=== PATIENT | male | born 1970 | race Caucasian/White ===

== ENCOUNTER → 2016-12-27 | Outpatient (CLI) | payer OTHER ==
[~2016-12-27] MED LIST: ASPI325T45 PO; ATV/1 PO; BUPRTAB51 PO; DSY/150 PO; IMIQ0.00 TOP; METO25TA56 PO; MULT-351 PO; PANT40TA PO; PRAM1TAB47 PO; QUET1TAB34 PO; RANI300T2 PO; SUMA100T16 PO; TRAM-10 PO; [UNRECOGNIZED DRUG - CODE] PO
--- NOTE | 2016-12-27 12:15 | DIAGNOSTIC IMAGING REPORT ---
GI SERIES W/AIR ROUTINE CLINICAL HISTORY: R10.13 Epigastric [id number] COMPARISON STUDY: None. FLUOROSCOPY TIME: 1.7 minutes. 21 images. FINDINGS: The patient swallowed barium without difficulty. The esophagus is normal in course, caliber, motility. No hiatus hernia. No gastroesophageal reflux. No gastric ulcerations. The duodenal bulb and duodenal C sweep are within normal limits. IMPRESSION: Normal upper GI series. Electronically signed by: Robbin Simmons M.D. 12/27/2016 12:14 PM Dictated Date/Time: 12/27/2016 12:13 PM
--- NOTE | 2016-12-27 12:18 | DIAGNOSTIC IMAGING REPORT ---
TWO VIEW CHEST CLINICAL HISTORY: Dyspnea. Atypical chest pain. Cough. FINDINGS: PA and lateral chest radiographs are obtained. No prior studies are available for comparison at the time of dictation. The cardiomediastinal silhouette is unremarkable. The lungs and pleural spaces are clear. There is no pneumothorax. The bony thorax appears intact. IMPRESSION: No active disease in the chest. Electronically signed by: Aftab Costa M.D. 12/27/2016 12:17 PM Dictated Date/Time: 12/27/2016 12:17 PM
[2016-12-27 13:08] LABS: BASO % 0.7 %; BASO ABS # 0.05 K/uL (0-0.2); COMPLETE YES; EOS % 3.6 %; HEMATOCRIT 43.7 % (42-52); IG% 0.1 %; LYMPH ABS # 2.34 K/uL (1.2-3.4); MEAN CELL VOLUME 88.5 fL (80-100); MEAN CORPUSCULAR HEMOGLOBIN 30.8 pg (25-34); MEAN CORPUSCULAR HGB CONC 34.8 g/dl (32-36); MONO % 7.7 %; NEUT % 53.9 %; PLATELET COUNT 319 K/uL (130-400); RED BLOOD COUNT 4.94 M/uL (4.7-6.1); WHITE BLOOD COUNT 6.88 K/uL (4.8-10.8)
[2016-12-27 13:45] LABS: ALT/SGPT 80 U/L (12-78); AMYLASE 36 U/L (25-115); AST/SGOT 34 U/L (15-37); BLOOD UREA NITROGEN 11 mg/dl (7-18); BUN/CREATININE RATIO 8.8 (10-20); CALCIUM 9.5 mg/dl (8.5-10.1); CARBON DIOXIDE 26 mmol/L (21-32); CHLORIDE 104 mmol/L (98-107); CHOLESTEROL 261 mg/dl (0-200); GLUCOSE 104 mg/dl (70-99); POTASSIUM 3.9 mmol/L (3.5-5.1); SODIUM 139 mmol/L (136-145)
[2016-12-27 13:48] LABS: ALKALINE PHOSPHATASE 60 U/L (45-117); CHOLESTEROL/HDL RATIO 6.5; HDL CHOLESTEROL 40 mg/dl; TRIGLYCERIDES 495 mg/dl (0-150)
--- NOTE | 2016-12-27 14:44 | DIAGNOSTIC IMAGING REPORT ---
ABDOMINAL ULTRASOUND, RIGHT UPPER QUADRANT HISTORY: Pain. Nausea. R10.13 Epigastric paint [id number]. COMPARISON: None. FINDINGS: Pancreas: The pancreas demonstrates a normal echotexture. Liver: Mild fatty infiltration Gallbladder: No gallbladder wall thickening. No gallstones. CBD: 6 mm Right kidney: No hydronephrosis. IMPRESSION: Mild fatty infiltration of liver. Otherwise negative study Electronically signed by: Mickey Miguel M.D. 12/27/2016 2:43 PM Dictated Date/Time: 12/27/2016 2:41 PM
[2017-01-01 22:35] LABS: IGA SERUM 133 mg/dL (81-463); TIS TRANS IGA 1 U/mL (<4)
== END | disposition home or self-care (01) ==
LOC: C.ULTR 10:57
PROVIDERS: ATTEND Family Medicine
DX: R06.00 Dyspnea, unspecified (principal); R10.13 Epigastric pain

== ENCOUNTER 2017-01-30 21:25 | Emergency (ER) | payer OTHER ==
[~2017-01-30] VITALS: Ht 182.9 cm; Wt 103.1 kg
[2017-01-30 21:31] VITALS: TEMP 36.7; Ht 182.9 cm; Wt 103.1 kg
[2017-01-30] MEDS ORDERED: QUET1TAB34 PO (22:17)
[2017-01-30] MEDS ORDERED: ASPI325T45 PO (22:17)
[2017-01-30] MEDS ORDERED: PRAM1TAB47 PO (22:17)
[2017-01-30] MEDS ORDERED: IMIQ5CRE4 TOP (22:17)
[2017-01-30] MEDS ORDERED: MULT-351 PO (22:17)
[2017-01-30] MEDS ORDERED: TRAM-10 PO (22:17)
[2017-01-30] MEDS ORDERED: SUMA100T16 PO (22:17)
[2017-01-30] MEDS ORDERED: RANI300T2 PO (22:17)
[2017-01-30] MEDS ORDERED: DSY/150 PO (22:17)
[2017-01-30] MEDS ORDERED: PANT40TA PO (22:17)
[2017-01-30] MEDS ORDERED: [UNRECOGNIZED DRUG - CODE] PO (22:17)
[2017-01-30] MEDS ORDERED: BUPRTAB51 PO (22:17)
[2017-01-30] MEDS ORDERED: ATV/1 PO (22:17)
[2017-01-30] MEDS ORDERED: METO25TA56 PO (22:17)
[2017-01-30 22:22] LABS: BASO ABS # 0.08 K/uL (0-0.2); COMPLETE YES; EOS % 4.9 %; HEMATOCRIT 40.3 % (42-52); LYMPH % 47.2 %; LYMPH ABS # 3.65 K/uL (1.2-3.4); MEAN CELL VOLUME 87.8 fL (80-100); MEAN CORPUSCULAR HEMOGLOBIN 30.7 pg (25-34); MONO % 7.8 %; NEUT % 39.1 %; PLATELET COUNT 320 K/uL (130-400); RED BLOOD COUNT 4.59 M/uL (4.7-6.1); WHITE BLOOD COUNT 7.74 K/uL (4.8-10.8)
[2017-01-30 22:30] LABS: CREATININE 1.1 mg/dl (0.60-1.40); MAGNESIUM 2.1 mg/dl (1.8-2.4); POTASSIUM 4.1 mmol/L (3.5-5.1)
[2017-01-30 22:33] LABS: ALB/GLOB RATIO 1.3 (0.9-2)
[2017-01-30 22:48] LABS: CALCIUM 9.3 mg/dl (8.5-10.1); INR 0.9 (0.9-1.1)
--- NOTE | 2017-01-30 22:52 | EMERGENCY ROOM VISIT NOTE ---
ED Visit Note First contact with patient: 21:51 I have seen and examined this patient with Duke Rico and generally agree with the treatment plan as discussed. Current/Historical Medications Scheduled Aspirin (Aspirin), 325 MG PO DAILY Bupropion (Wellbutrin-Xl), 300 MG PO QAM Imiquimod (Imiquimod), 1 APPLN TOP 3XWK Metoprolol Tartrate (Lopressor) (Lopressor), 25 MG PO BID Multiple Vitamin (Multi Vitamin Mens), 1 TAB PO DAILY Pantoprazole (Protonix), 40 MG PO BID Perphenazine (Perphenazine), 12 MG PO HS Pramipexole Dihydrochloride (Mirapex), 0.5 MG PO UD Quetiapine Fumarate (Seroquel), 100 MG PO HS Ranitidine (Zantac), 300 MG PO HS Sumatriptan Succinate (Imitrex), 100 MG PO PRN Trazodone HCl (Trazodone HCl), 300 MG PO HS Scheduled PRN Lorazepam (Ativan), 1 MG PO BID PRN for PRN Tramadol (Ultram), 50 MG PO TID PRN for Pain Allergies Coded Allergies: Thimerosal (Unverified Allergy, Unknown, EYES SWELLING, 01/30/17) Vital Signs Date Time Temp Pulse Resp B/P Pulse Ox O2 Delivery O2 Flow Rate FiO2 01/30/17 21:31 36.7 72 20 127/83 93 Room Air Laboratory Results 01/30/17 21:45 Red Blood Count 4.59, Mean Corpuscular Volume 87.8, Mean Corpuscular Hemoglobin 30.7, Mean Corpuscular Hemoglobin Concent 35.0, Mean Platelet Volume 9.0, Neutrophils (%) (Auto) 39.1, Lymphocytes (%) (Auto) 47.2, Monocytes (%) (Auto) 7.8, Eosinophils (%) (Auto) 4.9, Basophils (%) (Auto) 1.0, Neutrophils # (Auto) 3.03, Lymphocytes # (Auto) 3.65, Monocytes # (Auto) 0.60, Eosinophils # (Auto) 0.38, Basophils # (Auto) 0.08 01/30/17 21:45 Test 01/30/17 21:45 White Blood Count 7.74 K/uL (4.8-10.8) Red Blood Count 4.59 M/uL (4.7-6.1) Hemoglobin 14.1 g/dL (14.0-18.0) Hematocrit 40.3 % (42-52) Mean Corpuscular Volume 87.8 fL (80-100) Mean Corpuscular Hemoglobin 30.7 pg (25-34) Mean Corpuscular Hemoglobin Concent 35.0 g/dl (32-36) Platelet Count 320 K/uL (130-400) Mean Platelet Volume 9.0 fL (7.4-10.4) Neutrophils (%) (Auto) 39.1 % Lymphocytes (%) (Auto) 47.2 % Monocytes (%) (Auto) 7.8 % Eosinophils (%) (Auto) 4.9 % Basophils (%) (Auto) 1.0 % Neutrophils # (Auto) 3.03 K/uL (1.4-6.5) Lymphocytes # (Auto) 3.65 K/uL (1.2-3.4) Monocytes # (Auto) 0.60 K/uL (0.11-0.59) Eosinophils # (Auto) 0.38 K/uL (0-0.5) Basophils # (Auto) 0.08 K/uL (0-0.2) RDW Standard Deviation 40.7 fL (36.4-46.3) RDW Coefficient of Variation 12.7 % (11.5-14.5) Immature Granulocyte % (Auto) 0.0 % Immature Granulocyte # (Auto) 0.00 K/uL (0.00-0.02) Prothrombin Time 10.0 SECONDS (9.0-12.0) Prothromb Time International Ratio 0.9 (0.9-1.1) Activated Partial Thromboplast Time 25.0 SECONDS (21.0-31.0) Partial Thromboplastin Ratio 1.0 Anion Gap 8.0 mmol/L (3-11) Est Creatinine Clear Calc Drug Dose 105.3 ml/min Estimated GFR () 93.5 Estimated GFR (Non- 80.6 BUN/Creatinine Ratio 10.0 (10-20) Calcium Level 9.3 mg/dl (8.5-10.1) Magnesium Level 2.1 mg/dl (1.8-2.4) Total Bilirubin 0.2 mg/dl (0.2-1) Aspartate Amino Transf (AST/SGOT) 57 U/L (15-37) Alanine Aminotransferase (ALT/SGPT) 96 U/L (12-78) Alkaline Phosphatase 68 U/L (45-117) Total Protein 6.8 gm/dl (6.4-8.2) Albumin 3.8 gm/dl (3.4-5.0) Globulin 3.0 gm/dl (2.5-4.0) Albumin/Globulin Ratio 1.3 (0.9-2) Lipase 448 U/L (73-393) Departure Information Referrals Aftab Diego M.D. (PCP) Patient Instructions My [facility]
[2017-01-30] MEDS ORDERED: SODIUM CHLORIDE 0.9% 1000ML 1,000 ML IV STA (23:09)
[2017-01-31 00:18] LABS: URINE APPEARANCE CLEAR (CLEAR); URINE BILIRUBIN NEG (NEG); URINE COLOR YELLOW; URINE NITRITE NEG (NEG); URINE PH 5.5 (4.5-7.5); URINE SPECIFIC GRAVITY 1.017 (1.000-1.030); UROBILINOGEN NEG (NEG); ZZUR CULT IF INDIC CLEAN CATCH NO
[2017-01-31 00:20] VITALS: BP 146/87; PULSE 60; O2SAT 96
[2017-01-31 00:26] LABS: MANUAL MICROSCOPIC REQUIRED? NO; REVIEW REQ? NO
--- NOTE | 2017-01-31 00:26 | EMERGENCY ROOM VISIT NOTE ---
History First contact with patient: 21:51 Chief Complaint: GI ASSESSMENT Stated Complaint: BLACK STOOLS W/BLOOD Nursing Triage Summary: reports increased blood in stool. History of hemeroids History of Present Illness The patient is a 46 year old male who presents to the Emergency Department by private vehicle for evaluation of black stools with blood in his stool. He's had ongoing symptoms of blood in his stool since August. He had a colonoscopy performed in October which was concerning for hemorrhoids. He has not been treated for these to this point. He's had occasional episodes of blood in his stool. Last Saturday, he was told to come the emergency department as he had black stools as well as blood in his stools, but he put off until today. He had blood today which was concerning to him. He denies any mahi bleeding from the rectum. He denies any pain in his abdomen. He rates his current discomfort as a 0/10. The patient does not utilize any blood thinners. He denies any headaches, dizziness, lightheadedness, chest pain, palpations, short of breath, hematuria, or dysuria. Review of Systems A complete 10-point Review of Systems was discussed with the patient, with pertinent positives and negatives listed in the History of Present Illness. All remaining Review of Systems questions can be considered negative unless otherwise specified. Social History Smoking Status: Never Smoker Smokeless Tobacco Use: No Drug Use: none Current/Historical Medications Scheduled Aspirin (Aspirin), 325 MG PO DAILY Bupropion (Wellbutrin-Xl), 300 MG PO QAM Imiquimod (Imiquimod), 1 APPLN TOP 3XWK Metoprolol Tartrate (Lopressor) (Lopressor), 25 MG PO BID Multiple Vitamin (Multi Vitamin Mens), 1 TAB PO DAILY Pantoprazole (Protonix), 40 MG PO BID Perphenazine (Perphenazine), 12 MG PO HS Pramipexole Dihydrochloride (Mirapex), 0.5 MG PO UD Quetiapine Fumarate (Seroquel), 100 MG PO HS Ranitidine (Zantac), 300 MG PO HS Sumatriptan Succinate (Imitrex), 100 MG PO PRN Trazodone HCl (Trazodone HCl), 300 MG PO HS Scheduled PRN Lorazepam (Ativan), 1 MG PO BID PRN for PRN Tramadol (Ultram), 50 MG PO TID PRN for Pain Allergies Coded Allergies: Thimerosal (Unverified Allergy, Unknown, EYES SWELLING, 01/30/17) Physical Exam Vital Signs Date Time Temp Pulse Resp B/P Pulse Ox O2 Delivery O2 Flow Rate FiO2 01/31/17 00:20 60 18 146/87 96 Room Air 01/30/17 23:10 61 18 115/77 94 Room Air 01/30/17 21:31 36.7 72 20 127/83 93 Room Air Pain Rating (0-10): 0 Physical Exam VITAL SIGNS - Vital signs and nursing notes were reviewed. GENERAL - 46-year-old male appearing his stated age who is in no acute distress. Communicates well with provider and answers questions appropriately. ABDOMEN - Abdominal contour obese and without pulsations or visible masses. BS normoactive all four quadrants. No tenderness to palpation appreciated throughout. No palpable masses, hepatosplenomegaly, or ascites noted. RECTAL - No rectal fissures. No skin tags appreciated throughout. No active bleeding. A sterile, water-soluble lubricant was applied to the examiner's finger prior to internal exam. No rectal vault tenderness. No rectal masses. No fecal impaction. Stool Guaiac Test: Hemoccult NEGATIVE. PSYCH - A&Ox3 and cooperates fully with examiner. Pt is very pleasant and interacts well with examiner. Medical Decision & Procedures Laboratory Results 01/30/17 21:45 Red Blood Count 4.59, Mean Corpuscular Volume 87.8, Mean Corpuscular Hemoglobin 30.7, Mean Corpuscular Hemoglobin Concent 35.0, Mean Platelet Volume 9.0, Neutrophils (%) (Auto) 39.1, Lymphocytes (%) (Auto) 47.2, Monocytes (%) (Auto) 7.8, Eosinophils (%) (Auto) 4.9, Basophils (%) (Auto) 1.0, Neutrophils # (Auto) 3.03, Lymphocytes # (Auto) 3.65, Monocytes # (Auto) 0.60, Eosinophils # (Auto) 0.38, Basophils # (Auto) 0.08 01/30/17 21:45 Test 01/30/17 21:45 01/31/17 00:05 White Blood Count 7.74 K/uL (4.8-10.8) Red Blood Count 4.59 M/uL (4.7-6.1) Hemoglobin 14.1 g/dL (14.0-18.0) Hematocrit 40.3 % (42-52) Mean Corpuscular Volume 87.8 fL (80-100) Mean Corpuscular Hemoglobin 30.7 pg (25-34) Mean Corpuscular Hemoglobin Concent 35.0 g/dl (32-36) Platelet Count 320 K/uL (130-400) Mean Platelet Volume 9.0 fL (7.4-10.4) Neutrophils (%) (Auto) 39.1 % Lymphocytes (%) (Auto) 47.2 % Monocytes (%) (Auto) 7.8 % Eosinophils (%) (Auto) 4.9 % Basophils (%) (Auto) 1.0 % Neutrophils # (Auto) 3.03 K/uL (1.4-6.5) Lymphocytes # (Auto) 3.65 K/uL (1.2-3.4) Monocytes # (Auto) 0.60 K/uL (0.11-0.59) Eosinophils # (Auto) 0.38 K/uL (0-0.5) Basophils # (Auto) 0.08 K/uL (0-0.2) RDW Standard Deviation 40.7 fL (36.4-46.3) RDW Coefficient of Variation 12.7 % (11.5-14.5) Immature Granulocyte % (Auto) 0.0 % Immature Granulocyte # (Auto) 0.00 K/uL (0.00-0.02) Prothrombin Time 10.0 SECONDS (9.0-12.0) Prothromb Time International Ratio 0.9 (0.9-1.1) Activated Partial Thromboplast Time 25.0 SECONDS (21.0-31.0) Partial Thromboplastin Ratio 1.0 Anion Gap 8.0 mmol/L (3-11) Est Creatinine Clear Calc Drug Dose 105.3 ml/min Estimated GFR () 93.5 Estimated GFR (Non- 80.6 BUN/Creatinine Ratio 10.0 (10-20) Calcium Level 9.3 mg/dl (8.5-10.1) Magnesium Level 2.1 mg/dl (1.8-2.4) Total Bilirubin 0.2 mg/dl (0.2-1) Aspartate Amino Transf (AST/SGOT) 57 U/L (15-37) Alanine Aminotransferase (ALT/SGPT) 96 U/L (12-78) Alkaline Phosphatase 68 U/L (45-117) Total Protein 6.8 gm/dl (6.4-8.2) Albumin 3.8 gm/dl (3.4-5.0) Globulin 3.0 gm/dl (2.5-4.0) Albumin/Globulin Ratio 1.3 (0.9-2) Lipase 448 U/L (73-393) Urine Color YELLOW Urine Appearance CLEAR (CLEAR) Urine pH 5.5 (4.5-7.5) Urine Specific [place] 1.017 (1.000-1.030) Urine Protein NEG (NEG) Urine Glucose (UA) NEG (NEG) Urine Ketones NEG (NEG) Urine Occult Blood NEG (NEG) Urine Nitrite NEG (NEG) Urine Bilirubin NEG (NEG) Urine Urobilinogen NEG (NEG) Urine Leukocyte Esterase NEG (NEG) Medications Administered Medications (Trade) Dose Ordered Sig/Judith Route Start Time Stop Time Status Last Admin Dose Admin Sodium Chloride (Nss 1000ml) 1,000 ml @ 999 mls/hr Q1H1M STAT IV 01/30/17 23:09 01/31/17 00:09 DC 01/30/17 23:20 999 MLS/HR ED Course Patient was seen and evaluated by myself. Labs were drawn, saline lock in place. The patient was hydrated with normal saline. Rectal exam was performed. Stool was Hemoccult negative. Laboratory results demonstrate no acute leukocytosis, worrisome anemia, or bandemia. The patient has no significant electrolyte abnormalities. Case was reviewed with my attending physician and apparently evaluated the patient and agrees the diagnostic approach and treatment plan. Laboratory results and imaging studies were reviewed with the patient who acknowledges understanding. Patient will follow- up with his primary care provider from today's visit. He will return for any changing or worsening symptoms. Patient discharged home afebrile and in good condition. Medical Decision Given the patient's presentation and stated complaint, I did elect to perform the above-mentioned workup. The patient resents today with blood in his stools and rectal bleeding. His exam is otherwise unremarkable. His stool was Hemoccult negative. He is hemodynamically stable. The patient has had ongoing symptoms of this for the past few months. 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 He will return to the emergency department sooner for any changing or worsening symptoms. Patient discharged home afebrile and in good condition. In the evaluation and treatment of this patient, the following differential diagnoses were considered: Internal hemorrhoid, external hemorrhoid, GI bleed, diverticulitis, diverticulosis, appendicitis, amongst others. Impression Primary Impression: Blood in stool Additional Impression: Elevated lipase Departure Information Dispostion Home / Self-Care Condition GOOD Referrals Aftab Dieog M.D. (PCP) Patient Instructions My [facility] [address] Additional Instructions You have been seen in the emergency department today for blood in your stool. Follow-up with your primary care provider later this week for recheck. Return for any changing or worsening symptoms. Problem Qualifiers
== END 2017-01-31 00:31 | disposition home or self-care (01) ==
LOC: C.EDB 21:26 → C.EDC 01-31 00:31
DX: R19.5 Other fecal abnormalities (principal); R74.8 Abnormal levels of other serum enzymes; Z87.19 Personal history of other diseases of the digestive system; Z79.82 Long term (current) use of aspirin

== ENCOUNTER → 2017-02-11 | Outpatient (CLI) | payer OTHER ==
[~2017-02-11] MED LIST changes: -IMIQ0.00 TOP; +IMIQ5CRE4 TOP
[2017-02-11 18:17] LABS: BASO % 0.9 %; BASO ABS # 0.07 K/uL (0-0.2); COMPLETE YES; EOS % 4.3 %; HEMATOCRIT 43.1 % (42-52); IG% 0.1 %; LYMPH % 35.6 %; MEAN CELL VOLUME 89.6 fL (80-100); MEAN CORPUSCULAR HGB CONC 34.6 g/dl (32-36); MEAN PLATELET VOLUME 9.4 fL (7.4-10.4); MONO % 7.6 %; NEUT % 51.5 %; PLATELET COUNT 318 K/uL (130-400); RED BLOOD COUNT 4.81 M/uL (4.7-6.1); WHITE BLOOD COUNT 8.14 K/uL (4.8-10.8)
[2017-02-11 18:58] LABS: ALB/GLOB RATIO 1.3 (0.9-2); ALKALINE PHOSPHATASE 64 U/L (45-117); ALT/SGPT 66 U/L (12-78); BLOOD UREA NITROGEN 16 mg/dl (7-18); BUN/CREATININE RATIO 12.1 (10-20); CALCIUM 9.1 mg/dl (8.5-10.1); CARBON DIOXIDE 26 mmol/L (21-32); CHLORIDE 107 mmol/L (98-107); GLUCOSE 108 mg/dl (70-99); HDL CHOLESTEROL 37 mg/dl; POTASSIUM 3.9 mmol/L (3.5-5.1); SODIUM 141 mmol/L (136-145)
[2017-02-11 19:09] LABS: AST/SGOT 25 U/L (15-37); CHOLESTEROL 204 mg/dl (0-200); CHOLESTEROL/HDL RATIO 5.5; LDL CHOLESTEROL CALCULATED 104 mg/dl; TRIGLYCERIDES 317 mg/dl (0-150); VERY LOW DENSITY LIPOPROT CALC 63 mg/dl
[2017-02-12 06:36] LABS: ESTIMATED AVERAGE GLUCOSE 111 mg/dl; HA1C FLAG Normal (Normal)
--- NOTE | 2017-02-15 12:11 | CODING QUERY MEDICAL NECESSITY ---
SUPPORTING DIAGNOSIS NEEDED A supporting diagnosis is required for the test/procedure performed on this patient in order for us to be reimbursed by the patient's insurance. Please provide a supporting diagnosis for the following test/procedure listed below next to the test name along with your signature. *If there is no additional diagnosis for this patient that would support the following test/procedure please document that below next to the test/procedure. Test(s)/Procedure(s) that require a supporting diagnosis: DOS 02/11 * Hba1c DIAGNOSIS: Provider Signature: Date: Thank you Ana Garcia Health Information Management Once completed, please kindly fax back to [phone] For questions please call [phone]
== END | disposition home or self-care (01) ==
LOC: C.LABMFLN 12:27
PROVIDERS: ATTEND Family Medicine
DX: F25.0 Schizoaffective disorder, bipolar type (principal); E78.5 Hyperlipidemia, unspecified; R73.03 Prediabetes; G25.81 Restless legs syndrome

== ENCOUNTER → 2018-05-13 | Outpatient (CLI) | payer BC ==
[~2018-05-13] MED LIST changes: +ASPECOTC PO; -ASPI325T45 PO
[2018-05-13 18:17] LABS: ALKALINE PHOSPHATASE 53 U/L (45-117); ALT/SGPT 44 U/L (12-78); AST/SGOT 21 U/L (15-37); BLOOD UREA NITROGEN 14 mg/dl (7-18); CALCIUM 9.5 mg/dl (8.5-10.1); CARBON DIOXIDE 26 mmol/L (21-32); CHOLESTEROL 211 mg/dl (0-200); CREATININE 1.18 mg/dl (0.60-1.40); GLUCOSE 100 mg/dl (70-99); LDL CHOLESTEROL CALCULATED 99 mg/dl; POTASSIUM 4.1 mmol/L (3.5-5.1); SODIUM 138 mmol/L (136-145); TOTAL PROTEIN 7.1 gm/dl (6.4-8.2)
[2018-05-14 05:57] LABS: HEMOGLOBIN A1C 5.6 % (4.5-5.6)
== END | disposition home or self-care (01) ==
LOC: C.LABMFLN 13:53
PROVIDERS: ATTEND Family Medicine
DX: F31.9 Bipolar disorder, unspecified (principal); E78.5 Hyperlipidemia, unspecified; R73.03 Prediabetes

== ENCOUNTER 2022-06-28 10:00 | Inpatient (IN) ==
--- NOTE | 2022-06-27 08:32 | Anesthesiology Consultation ---
Date of Service June 27, 2022 Assessment & Plan (1) Encounter for pre-operative examination: - check CBC with diff and BMP STAT am DOS. - Case discussed with Dr. Garcia who advised given indication for surgery, pt is acceptable to proceed with surgery pending anesthesiologist evaluation am DOS. - chest discomfort, dyspnea on exertion: multiple ER and PCP visits in past 6 months, stress echo 06/26/22 nondiagnostic as target HR was not attained. Inte rmittent episodes several times weekly per PCP 05/25/22 note, pt contacted and states has not had chest discomfort "for several months." He denies CP or SOB with 1 FOS. - PCP office visit 05/25/22 [place]: "...For the recently diagnosed prostate cancer you are planning on prostatectomy surgery by Dr. Curtis on June 28. We again discussed advantages and disadvantages of active surveillance, surgery, external beam radiation, and brachytherapy. For the chest discomfort we will set up a stress echo to make sure the heart is okay for surgery. We called cardiology and were able to schedule a stress echo scheduled...Certainly, if you have chest discomfort before we get an answer on the stress test lasting for more than 15 minutes call 911. Reflux could be the cause of your chest discomfort. Symptoms have improved with the lansoprazole...for the atrial fibrillation with [id number]- VASc score of 0 anticoagulation would not be recommended. History of mild intermittent asthma based on symptoms has been asymptomatic recently. Patient has not needed his albuterol recently. May need albuterol treatment perioperatively. Obviously, if stress test is abnormal we will need to do further cardiac evaluation prior to prostate surgery. If stress test is normal you would be considered low risk for perioperative heart or lung complications according to [place] [employer]/[place] [employer] guidelines. As above we will avoid aspirin and NSAID medications for a week prior to surgery. The morning of surgery you should take the metoprolol and the lansoprazole..." - COVID screening: Per outpatient coder on 06/22/2022: Pt [facility] to [facility]22 for cough with white sputum, mild shortness of breath on exertion, fatigue, anorexia, nausea, and loose to watery stools. COVID testing negative, pt reports resolution of symptoms. Chart Review Chart Review: Acceptable Risk for Surgery (pending anesthesiologist evaluation am DOS) and Patient NOT seen in Pre Admission Testing History Surgery Operation Date: 06/28/22 07:30 Proposed Procedures p Robotic Laparoscopic Assisted Radical Retropubic Prostatectomy, Possible Open, Possible Pelvic Lymph Node Dissection, Possible Suprapubic Tube Placement - Rodolfo Curtis MD Height/Weight Height: 6 ft Weight: 82.554 kg Allergies Allergy/AdvReac Type Severity Reaction Status Date / Time thimerosal Allergy Unknown EYES Verified 06/22/22 08:41 SWELLING sulfamethoxazole AdvReac Unknown Madelaine weak/ Verified 06/22/22 08:41 [From Bactrim] anxious trimethoprim [From Bactrim] AdvReac Unknown Madelaine weak/ Verified 06/22/22 08:41 anxious Medications Home Medications Medication Instructions Recorded Confirmed Last Taken lorazepam 2 mg tablet 2 mg PO HS #30 tabs 05/07/19 06/22/22 Unknown trazodone 150 mg tablet 300 mg PO HS #60 tabs 05/07/19 06/22/22 Unknown tadalafil 20 mg tablet See Rx Instructions PO ONCE PRN 08/03/21 06/22/22 Unknown sexual activity #10 tabs lactulose 10 gram/15 mL (15 mL) See Rx Instructions PO TID PRN 10/24/21 06/22/22 Unknown oral solution constipation #750 mL metoprolol tartrate 25 mg tablet 25 mg PO BID #180 tabs 11/09/21 06/22/22 Unknown lansoprazole 30 mg capsule,delayed 30 mg PO QAM #30 caps 11/10/21 06/22/22 Unknown release meloxicam 15 mg tablet 15 mg PO DAILY PRN pain #30 tabs 02/02/22 06/22/22 Unknown perphenazine 16 mg tablet 24 mg PO HS #90 tabs 02/13/22 06/22/22 Unknown bupropion HCl 200 mg tablet,12 hr 200 mg PO BID 02/27/22 06/22/22 Unknown sustained-release (Wellbutrin SR) albuterol sulfate 90 mcg/actuation 2 puff inhalation Q4H PRN 03/12/22 06/22/22 Unknown aerosol inhaler shortness of breath or cough #8.5 grams sumatriptan succinate 100 mg tablet 100 mg PO .COMPLEX PRN Migraine 05/15/22 06/22/22 Unknown Headache pramipexole 0.75 mg tablet 0.75 mg PO BID #60 tabs 06/05/22 06/22/22 Unknown fluoxetine 20 mg capsule 40 mg PO QAM 06/22/22 06/22/22 Unknown melatonin 10 mg tablet 10 mg PO HS PRN Sleep 06/22/22 06/22/22 Unknown topiramate 25 mg tablet 25 mg PO BID 06/22/22 06/22/22 Unknown Past Medical History Medical History (Updated 06/27/22 @ 09:36 by Lucia Torres PA-C) Anxiety Cancer PROSTATE Chest pain nondiagnostic stress echo 06/26/22, following with PCP Chronic GERD Dyspnea Lumbar radiculopathy Migraine Mild asthma LAST USE RESCUE INHALER THIS AM OCD (obsessive compulsive disorder) Paroxysmal atrial fibrillation on ASA, follows with PCP Post traumatic stress disorder Restless leg syndrome Schizo affective schizophrenia Past Family History Family History Father Diabetes Brother Kidney stones Grandmother Bone cancer Denies family history of Ovarian cancer Prostate cancer Myocardial infarction Breast cancer Colorectal cancer Past Surgical History Surgical History H/O vasectomy History of back surgery History of colonoscopy History of prostate biopsy Social History Smoking Status: Never smoker Do You Dip or Chew Tobacco: No Hx Alcohol Use: No Hx Substance Use: No Testing Electrocardiogram Date: 03/21/22 Sinus rhythm, rate 68 bpm Chest X-Ray Date: 03/21/22 *1 view* Mild diffuse ground-glass attenuation of the pulmonary parenchyma is not significantly changed from prior and likely represents a component of chronic lung disease/chronic pulmonary parenchymal markings. No clearly identifiable focal consolidation. Echocardiogram Date: 02/23/22 EF 60-64% Normal LV wall motion Mild tricuspid regurgitation Normal pulmonary pressure Stress Test Date: 06/26/22 Nondiagnostic was target Hr was not attained Poor exercise tolerance EF 55-60% No regional wall motion abnormalities No significant valvular abnormalities Other Testing Bone scan wholebody 04/09/22 No abnormal osseous uptake Chest, abdomen pelvis CT 02/23/22 No acute findings on chest CT report Edema present mesenteric fat adjacent to prostate gland. Findings consist be secondary [sic] to inflammation, hemorrhage or cellulitis. No abscess Head CT 02/23/22 No acute intracranial abnormality Head and neck CTA 01/18/22 No evidence of flow-limiting stenosis, large vessel occlusion, dissection or intracranial aneurysm Head CT 01/18/22 No acute intracranial abnormality. MRI offers greater sensitivity for most intracranial processes and should be considered based on clinical concern and as feasible. Mild global brain volume loss and probable subtle patchy white matter lucencies. Although nonspecific, these changes most likely reflect chronic microvascular ischemic disease, further supported by intracranial atherosclerosis (also mild).
[~2022-06-28 10:00] MED LIST changes: +ACETAMINOPHEN 1000 MG/100 ML IV IV ONE; -ASPECOTC PO; -ATV/1 PO; -BUPRTAB51 PO; -DSY/150 PO; +HEPARIN SOD 5,000 UNIT/0.5 ML VIAL SC SCH; -IMIQ5CRE4 TOP; +LACTATED RINGER'S 1,000 ML IV SCH; +LR 15ML/HR IV SCH; -METO25TA56 PO; -MULT-351 PO; -PANT40TA PO; -PRAM1TAB47 PO; -QUET1TAB34 PO; -RANI300T2 PO; -SUMA100T16 PO; -TRAM-10 PO; -[UNRECOGNIZED DRUG - CODE] PO; +ceFAZolin 2000MG 2,000 MG/15 ML SYR IV SCH
[2022-06-28 10:47] LABS: Basophils # (auto) 0.08 K/uL (0-0.2); Basophils % (auto) 0.8 %; Eosinophils # (auto) 0.37 K/uL (0-0.50); Eosinophils % (auto) 3.6 %; Hematocrit (blood only) 40.2 % (40.1-51.0); Hemoglobin 13.9 g/dl (14.0-18.0); Immature Granulocytes # (auto) 0.03 K/uL (0.00-0.02); Immature Granulocytes % (auto) 0.3 %; Lymphocytes # (auto) 2.65 K/uL (1.2-3.4); Mean Corpuscular Hgb Conc 34.6 g/dL (32.0-36.0); Mean Corpuscular Volume 86.6 fL (80.0-100.0); Mean Platelet Volume 8.8 fL (9.4-12.4); Monocytes # (auto) 0.73 K/uL (0.24-0.82); Monocytes % (auto) 7.1 %; Neutrophils # (auto) 6.35 K/uL (1.4-6.5); Neutrophils % (auto) 62.2 %; Platelet Count 351 K/uL (130-400); RDW Coefficient of Variation 12.9 % (11.5-14.5); RDW Standard Deviation 40.3 fL (36.4-46.3); Red Blood Count 4.64 M/uL (4.63-6.08); White Blood Count 10.21 K/ul (4.8-10.8)
[2022-06-28] MEDS ORDERED: ePHEDrine sulfate 50 MG/ML AMP IV PRN (10:57)
[2022-06-28] MEDS ORDERED: ATROPINE SULFATE 0.1 MG/ML 10ML SYR IV PRN ×2 (10:57→19:27)
[2022-06-28] MEDS ORDERED: ONDANSETRON INJ 2 MG/ML 2 ML VIAL IV PRN ×3 (10:57→21:10)
[2022-06-28] MEDS ORDERED: fentaNYL citrate 100 MCG/2 ML VIAL IV PRN (10:57)
[2022-06-28 11:48] LABS: Calcium 9.4 mg/dl (8.5-10.1); Est GFR (African American) 85.8 ml/min; Est GFR (Non-African American) 74.1 ml/min; Potassium 3.8 mmol/L (3.5-5.1)
--- NOTE | 2022-06-28 13:17 | History & Physical Report ---
Date of Service June 28, 2022 Assessment & Plan (1) Prostate cancer: Plan: We reviewed the plan for robot-assisted radical prostatectomy with bilateral pelvic lymph node dissection. We reviewed the risks of the procedure as well as the anticipated recovery. He expressed understanding and willingness to proceed with surgery today. History of Present Illness Primary Care Provider: Aftab Diego MD This is a 52-year-old male, recently seen in the urology office for prostate cancer. At that time we discussed radiation versus surgery as treatment options. He elected to proceed with surgery and presents the hospital for the procedure today. He denies any changes in his health. Allergies Allergy/AdvReac Type Severity Reaction Status Date / Time thimerosal Allergy Unknown EYES Verified 06/28/22 10:21 SWELLING sulfamethoxazole AdvReac Unknown Madelaine weak/ Verified 06/28/22 10:21 [From Bactrim] anxious trimethoprim [From Bactrim] AdvReac Unknown Madelaine weak/ Verified 06/28/22 10:21 anxious Home Medications Medication Instructions Recorded Confirmed Type lorazepam 2 mg tablet 2 mg PO HS #30 tabs 05/07/19 06/28/22 Rx trazodone 150 mg tablet 300 mg PO HS #60 tabs 05/07/19 06/28/22 Rx tadalafil 20 mg tablet See Rx Instructions PO ONCE PRN 08/03/21 06/28/22 Rx sexual activity #10 tabs lactulose 10 gram/15 mL (15 mL) See Rx Instructions PO TID PRN 10/24/21 06/22/22 Rx oral solution constipation #750 mL metoprolol tartrate 25 mg tablet 25 mg PO BID #180 tabs 11/09/21 06/28/22 Rx lansoprazole 30 mg capsule,delayed 30 mg PO QAM #30 caps 11/10/21 06/28/22 Rx release meloxicam 15 mg tablet 15 mg PO DAILY PRN pain #30 tabs 02/02/22 06/22/22 Rx perphenazine 16 mg tablet 24 mg PO HS #90 tabs 02/13/22 06/28/22 Rx bupropion HCl 200 mg tablet,12 hr 200 mg PO BID 02/27/22 06/28/22 History sustained-release (Wellbutrin SR) albuterol sulfate 90 mcg/actuation 2 puff inhalation Q4H PRN 03/12/22 06/28/22 Rx aerosol inhaler shortness of breath or cough #8.5 grams sumatriptan succinate 100 mg tablet 100 mg PO .COMPLEX PRN Migraine 05/15/22 06/28/22 History Headache pramipexole 0.75 mg tablet 0.75 mg PO BID #60 tabs 06/05/22 06/22/22 Rx fluoxetine 20 mg capsule 40 mg PO QAM 06/22/22 06/28/22 History melatonin 10 mg tablet 10 mg PO HS PRN Sleep 06/22/22 06/28/22 History topiramate 25 mg tablet 25 mg PO BID 06/22/22 06/28/22 History Past Med/Surg History Medical History Anxiety Cancer PROSTATE Chest pain nondiagnostic stress echo 06/26/22, following with PCP Chronic GERD Dyspnea Lumbar radiculopathy Migraine Mild asthma LAST USE RESCUE INHALER THIS AM OCD (obsessive compulsive disorder) Paroxysmal atrial fibrillation on ASA, follows with PCP Post traumatic stress disorder Restless leg syndrome Schizo affective schizophrenia Surgical History H/O vasectomy History of back surgery History of colonoscopy History of prostate biopsy Family History Father Diabetes Brother Kidney stones Grandmother Bone cancer Denies family history of Ovarian cancer Prostate cancer Myocardial infarction Breast cancer Colorectal cancer Social History Smoking Status: Never smoker Second Hand Exposure: No; Do You Dip or Chew Tobacco: No; Hx Alcohol Use: No Hx Substance Use: No Preferred Language: Urdu Communication Ability: Effective Visual Impairment: No Limitations Hearing Ability: Normal Internet Retailer Required: No Beliefs That Will Affect Care: None marital status: Current Living Situation: Alone current occupational status: disabled Other Information That Helps Us Care for You: No Feels Safe at Home: Yes Safety Concerns: Feels Safe At This Time Childhood Exposure to Second-Hand Smoke: No Dental Care, Regularly: No Physical Activity Frequency: Does not Exercise Assistive Devices: Glasses Review of Systems 14 point review of systems negative except for otherwise indicated. Physical Exam Constitutional: well developed and well nourished; no acute distress Eyes: + anicteric sclerae; pupils not irregular Respiratory: normal respiratory effort; no respiratory distress, does not use accessory muscles and no cough Cardiovascular: well perfused Gastrointestinal (Abdomen): Inspection/Auscultation: abdomen normal to inspection; abdomen not distended Musculoskeletal: Extremities: extremities normal to inspection Skin: normal turgor; no rashes and no lesions Neurologic: moves all extremities and awake Psychiatric: Orientation: alert and oriented x 3 Results & Data ([facility]) Vital Signs (Past 12 Hours) Vital Signs Temp Pulse Resp BP Pulse Ox O2 Del Method 06/28/22 10:26 36.8 C 64 20 130/85 94 Room Air
[2022-06-28] MEDS ORDERED: MIDAZOLAM HCL 1 MG/ML 2ML VIAL ONE (13:18)
[2022-06-28] MEDS ORDERED: BUPIVACAINE 0.5 % 5 MG/1 ML MPF 30ML VIAL ONE (13:19)
[2022-06-28] MEDS ORDERED: fentaNYL citrate 100 MCG/2 ML VIAL ONE (13:19)
[2022-06-28] MEDS ORDERED: BELLADONNA/OPIUM SUPP 60 MG SUPP PR ONE ×2 (13:44→17:20)
[2022-06-28] MEDS ORDERED: LIDOCAINE 2% MPF LOCAL 5 ML VIAL INFIL ONE (14:03)
[2022-06-28] MEDS ORDERED: PROPOFOL IV EMULSION 10 MG/ML 20 ML VIAL IV ONE (14:03)
[2022-06-28] MEDS ORDERED: DEXAMETHASONE SOD INJ 4 MG/ML VIAL ONE (14:03)
[2022-06-28] MEDS ORDERED: ROCURONIUM BROMIDE 10 MG/ML 5 ML VIAL IV ONE ×5 (14:03→16:08)
[2022-06-28] MEDS ORDERED: HYDROmorphone INJ 2 MG/ML SYR/VIAL ONE (14:42)
[2022-06-28] MEDS ORDERED: ONDANSETRON INJ 2 MG/ML 2 ML VIAL ONE (15:03)
[2022-06-28] MEDS ORDERED: SURGICEL ABSORB HEMOSTAT 2IN X 14IN TOP ONE (17:19)
[2022-06-28] MEDS ORDERED: FLOSEAL HEMOSTATIC MATRIX 10ML TOP ONE (17:19)
[2022-06-28] MEDS ORDERED: NEOSTIGMINE METHYLSULFATE 1 MG/ML 10ML VIAL ONE (17:30)
[2022-06-28] MEDS ORDERED: GLYCOPYRROLATE 0.2 MG/ML VIAL ONE (17:30)
[2022-06-28] MEDS ORDERED: ceFAZolin 330 MG/ML 1 GM VIAL ONE (17:35)
[2022-06-28] MEDS ORDERED: ceFAZolin 1000MG 1,000 MG/7.5 ML SYR IV ONE (17:43)
--- NOTE | 2022-06-28 19:09 | Operative Report ---
PG Post Operative Report Pre & Post Diagnosis Operation Date: 06/28/22 11:30 Pre-Op Diagnosis: Prostate Cancer Post-Op Diagnosis: Prostate Cancer I identified the patient and participated in the time-out.: Yes Procedure Operation Date: 06/28/22 11:30 Actual Procedures p Robotic Laparoscopic Assisted Prostatectomy, Pelvic Lymph Node Dissection - Rodolfo Curtis MD Surgeon Rodolfo Curtis MD Religious Activities Director JESSIE Bansal Estimated Blood Loss 300 Findings See Below Prostate removed in the normal fashion. Partial nerve sparing on the left, nerve sparing on the right. Right pelvic lymph node dissection performed, left pelvic lymph node sitting over the iliac vessels was removed. Specimens 1) fat over prostate 2) prostate with vas deferens and seminal vesicles 3) right pelvic lymph nodes 4) left pelvic lymph node Drains Rushing catheter per urethra Anesthesia Type General Complications none Disposition Accompanied Patient To Recovery: Yes Disposition: Recovery Room Indications This is a 52-year-old male previously seen in the urology office with prostate cancer. At that time we did discussed radiation and surgery as options for active management of prostate cancer. He elected to pursue surgery and he presents to the OR on 06/28/2022 for the procedure. Description of Procedure The patient was identified in the preoperative holding area and informed consent was confirmed. He was then brought to the operating room where general anesthesia was initiated. He was placed supine on the operating room table with all pressure points appropriately padded. His abdomen and genitalia were prepped and draped in the usual sterile fashion and a timeout was performed. A 2 cm incision was made above the umbilicus and then a Veress needle was used to obtain access to the abdomen. Proper position was confirmed with the drop test and low initial insufflation pressure. The abdomen was insufflated with CO2 to a pressure of 12 mmHg. An 8 mm robotic port was placed in the incision and the robotic camera was inserted. The abdominal cavity was surveyed, demonstrating no injury to the abdominal viscera. The remaining robotic ports were placed under direct visualization, with 2 robotic ports on the left side and 1 robotic port on the right. A 12 mm wet process miller head assistant port was placed on the right side as well, and a 5 mm wet process miller head assistant port was placed in the right upper quadrant. The robot was then docked. There were some sigmoid adhesions in the left lower quadrant. These were divided sharply so the sigmoid and rectum could be easily reflected. Using electrocautery, the bladder was then dropped from the anterior wall of the abdomen, exposing the space of Retzius. This dissection was carried down to expose the pelvic brim and subsequently the anterior surface of the prostate and the endopelvic fascia. The fat overlying the anterior of the prostate was removed and sent for pathologic analysis, labeled as 'fat over prostate'. The endopelvic fascia was then divided on each side to expose the lateral aspects of the prostate and the lateral aspects of the pedicles. V-Loc suture was used to ligate the dorsal venous complex to prevent backbleeding in subsequent steps. The fourth arm of the robot was then used to put some gentle traction on the bladder, and the bladder neck was identified. Using electrocautery, the anterior bladder neck was dissected to expose the Rushing catheter, whose tip was removed from the bladder and held anteriorly. The posterior bladder neck dissection was then completed. At this point bilateral vas deferens were exposed and isolated. The vas deferens were cauterized and then divided. Bilateral seminal vesicles were dissected out as well. Denonvilliers fascia was then divided and the posterior prostate dissection was carried up as far as possible toward the urethra. The pedicles were then divided using combination of clips and sharp dissection, trying to use minimal electrocautery. On the right side the nerve sparing approach was used. On the left side a partial nerve sparing approach was used. Attention was turned anteriorly and the dorsal venous complex was divided using sharp dissection and electrocautery. Hemostasis was obtained by oversewing the remaining dorsal venous complex with V-Loc suture. The urethra was isolated and then divided sharply. At this point, the prostate was free and was placed in a specimen bag. A right pelvic lymph node dissection was performed in the standard fashion and the lymph node packet was sent for analysis. Left side of the pelvis was inspected and there was a large possible lymph node overlying the inguinal vessels, estimated to be approximately 3 cm in diameter. This was dissected out and placed in a separate specimen bag to be sent for analysis. There were no other suspicious lymph nodes on the left side and he had scant lymphatic tissue, so a lymph node dissection with a standard template was not performed on the left. The pelvis was inspected and meticulous hemostasis was ensured. Double-armed V- Loc suture was then used to re-anastomose the bladder neck with the urethra. Once this was complete, the anastomosis was tested by instilling 120 mL of normal saline into the bladder. Satisfied that the anastomosis was watertight, the catheter balloon was inflated with 10 mL of normal saline. The robot was then undocked. The supraumbilical incision was extended and the prostate and the left pelvic lymph node were extracted. 0 Vicryl suture was then used to close the fascia at this incision. All skin incisions were closed with 4-0 Monocryl suture and then a layer of Dermabond was applied. All instrument and sponge counts were correct at the end of the procedure. The patient was then awakened from anesthesia and was brought to the PACU in stable condition. JESSIE Bansal acted as the bedside wet process miller head assistant for the duration of the case. She assisted with gaining access, providing retraction and suction. Passing in sutures and applying clips as needed. She also helped with specimen extraction and closing. I attest to the content of the Intraoperative Record and any orders documented therein. Any exceptions are noted below.
[2022-06-28] MEDS ORDERED: KETOROLAC 30 MG/ML VIAL IV PRN (19:27)
[2022-06-28] MEDS ORDERED: PROMETHAZINE HCL 6.25 MG in SODIUM CHLORIDE 0.9% 50 ML IV PRN (19:27)
[2022-06-28] MEDS ORDERED: HYDROmorphone INJ 1 MG/ML SYRINGE IV PRN (19:27)
--- NOTE | 2022-06-28 19:57 | Anesthesiology Progress Note ---
Date of Service June 28, 2022 Anesthesia Post Procedure Vital Signs Vital Signs: Temp Pulse Pulse Resp BP Pulse Ox O2 Del Method 06/28/22 19:55 75 15 129/77 93 Nasal Cannula 06/28/22 19:45 90 17 134/85 97 Oxymask 06/28/22 19:35 72 13 120/76 96 Oxymask 06/28/22 19:25 76 18 135/90 95 Oxymask 06/28/22 19:15 79 14 144/92 H 96 Oxymask 06/28/22 19:05 81 14 134/90 98 Oxymask 06/28/22 18:55 74 13 112/78 98 Oxymask 06/28/22 18:53 36.4 C L 80 18 134/83 97 Oxymask 06/28/22 10:26 36.8 C 64 20 130/85 94 Room Air O2 Flow Rate 06/28/22 19:55 2 06/28/22 19:45 5 06/28/22 19:35 5 06/28/22 19:25 5 06/28/22 19:15 5 06/28/22 19:05 5 06/28/22 18:55 5 06/28/22 18:53 5 06/28/22 10:26 Pain Intensity Abdomen: Pain Intensity: 1 Transfer of Care Handoff Completed per policy Notes Mental Status: alert / awake / arousable Patient Amnestic to Procedure: Yes Nausea / Vomiting: adequately controlled Pain: adequately controlled Airway Patency, RR, SpO2: stable & adequate BP & HR: stable & adequate Hydration State: stable & adequate Anesthetic Complications: no major complications apparent
[2022-06-28] MEDS ORDERED: ALBUTEROL HFA 8 GM INHALER INH PRN (21:10)
[2022-06-28] MEDS ORDERED: MoRPHine SULFATE 2 MG/ML CARP IV PRN (21:10)
[2022-06-28] MEDS ORDERED: oxyCODONE HCL IR 5 MG TAB (IMMEDIATE RELEASE) PO PRN ×2 (21:10)
[2022-06-28] MEDS ORDERED: SUMAtriptan succinate 100 MG TAB PO PRN (21:10)
[2022-06-28] MEDS ORDERED: MoRPHine SULFATE 4 MG/ML 1 ML CARP\\VIAL IV PRN (21:10)
[2022-06-28] MEDS ORDERED: MELATONIN 3 MG TAB PO PRN (21:21)
[2022-06-28] MEDS ORDERED: LACTULOSE SYRUP 20 GM/30 ML UDC PO PRN (21:25)
[2022-06-28] MEDS ORDERED: LORazepam 1 MG TAB PO SCH (21:45)
[2022-06-28] MEDS ORDERED: traZODone HCL 100 MG TAB PO SCH (21:45)
[2022-06-28] MEDS ORDERED: PERPHENAZINE 2 MG TABLET PO SCH (22:00)
[2022-06-28] MEDS: buPROPion SR 100 MG TABCR PO SCH (22:49)
[2022-06-28] MEDS: HEPARIN SOD 5,000 UNIT/0.5 ML VIAL SQ SCH (22:50)
[2022-06-28] MEDS: METOPROLOL TARTRATE 25 MG TAB PO SCH (22:51)
[2022-06-28] MEDS: PRAMIPEXOLE DIHYDROCHLO 0.25 MG TAB PO SCH (22:51)
[2022-06-28] MEDS: DOCUSATE SODIUM 100 MG CAP PO SCH (22:51)
[2022-06-28] MEDS: TOPIRAMATE 25 MG TAB PO SCH (22:52)
[2022-06-28] MEDS: ACETAMINOPHEN 325 MG TAB PO SCH (22:53)
[2022-06-28] MEDS: ceFAZolin 2000MG 2,000 MG/15 ML SYR IV SCH (22:53)
[2022-06-28] MEDS: LACTATED RINGER'S 1,000 ML IV SCH (23:04)
[2022-06-29] MEDS: ceFAZolin 2000MG 2,000 MG/15 ML SYR IV SCH (05:55)
[2022-06-29] MEDS: ACETAMINOPHEN 325 MG TAB PO SCH ×2 (05:56→16:05)
[2022-06-29 07:01] LABS: Basophils # (auto) 0.01 K/uL (0-0.2); Basophils % (auto) 0.1 %; Hematocrit (blood only) 34.8 % (40.1-51.0); Hemoglobin 11.9 g/dl (14.0-18.0); Immature Granulocytes # (auto) 0.04 K/uL (0.00-0.02); Immature Granulocytes % (auto) 0.4 %; Lymphocytes # (auto) 1.46 K/uL (1.2-3.4); Lymphocytes % (auto) 13.2 %; Mean Corpuscular Hemoglobin 30.2 pg (25.0-34.0); Mean Corpuscular Hgb Conc 34.2 g/dL (32.0-36.0); Mean Corpuscular Volume 88.3 fL (80.0-100.0); Mean Platelet Volume 8.9 fL (9.4-12.4); Monocytes # (auto) 0.89 K/uL (0.24-0.82); Monocytes % (auto) 8.1 %; Neutrophils # (auto) 8.63 K/uL (1.4-6.5); Neutrophils % (auto) 78.2 %; Platelet Count 298 K/uL (130-400); RDW Coefficient of Variation 12.7 % (11.5-14.5); RDW Standard Deviation 41.2 fL (36.4-46.3); Red Blood Count 3.94 M/uL (4.63-6.08); White Blood Count 11.03 K/ul (4.8-10.8)
[2022-06-29 07:24] LABS: BUN Creatinine Ratio 13.3 (10-20); Calcium 8.6 mg/dl (8.5-10.1); Creatinine Clr Calc Pharmacy 98.7 ml/min; Est GFR (African American) 94.8 ml/min; Est GFR (Non-African American) 81.8 ml/min; Potassium 3.9 mmol/L (3.5-5.1)
[2022-06-29] MEDS ORDERED: PANTOprazole 40 MG TAB PO SCH (09:00)
[2022-06-29] MEDS ORDERED: FLUoxetine HCL 20 MG CAP PO SCH (09:00)
[2022-06-29] MEDS: LACTATED RINGER'S 1,000 ML IV SCH (09:44)
[2022-06-29] MEDS: DOCUSATE SODIUM 100 MG CAP PO SCH (09:46)
[2022-06-29] MEDS: buPROPion SR 100 MG TABCR PO SCH (09:46)
[2022-06-29] MEDS: TOPIRAMATE 25 MG TAB PO SCH (09:48)
[2022-06-29] MEDS: PRAMIPEXOLE DIHYDROCHLO 0.25 MG TAB PO SCH (09:48)
[2022-06-29] MEDS: METOPROLOL TARTRATE 25 MG TAB PO SCH (09:53)
[2022-06-29] MEDS: HEPARIN SOD 5,000 UNIT/0.5 ML VIAL SQ SCH (09:56)
--- NOTE | 2022-06-29 10:59 | Urology Progress Note ---
Date of Service June 29, 2022 Assessment & Plan (1) Prostate cancer: Plan: Postop day #1 status post prostatectomy Recovery is on pace Plan for discharge home later this morning exam we will check 1 more temperature before he leaves, if he remains afebrile I will plan for dischargeif he experiences a fever we would likely hold for 24 hours observation Admission and Anticipated Discharge Date Admission Date: June 28, 2022 Subjective No subjective complaints overnight Minimal abdominal discomfort Still on nasal cannula O2 but uncertain he really requires this He did have a documented fever this morning, however his temperature was rechecked 1 hour later and he was afebrileaccuracy? He has no subjective symptoms of a fever Urine is clear Labs are stable Good urine output Physical Exam Physical Exam: Incisions okayno concerns, soft abdomen, clear urine Results & Data ([facility]) Vital Signs (Past 12 Hours) Vital Signs Temp Pulse Resp BP Pulse Ox O2 Del Method O2 Flow Rate 06/29/22 10:12 Nasal Cannula 2 06/29/22 07:57 36.8 C 73 16 112/74 96 06/29/22 05:56 38.8 C H 92 H 14 123/72 97 Nasal Cannula 2 PG Care Time/CCT Total # of Minutes Spent Total Time Spent with Patient: Total time spent is greater than 50% in coordination of care (as documented) at patient's floor/unit and/or counseling patient: Coding Level of Care Code None Diagnoses Prostate cancer C61
--- NOTE | 2022-06-29 13:30 | Discharge Summary ---
Date of Service June 29, 2022 Admission HPI Per Admitting Provider 52-year-old male with recently diagnosed prostate cancer who presents for robotic prostatectomy. Admission Exam Per Admitting Provider Constitutional: well developed and well nourished; no acute distress Eyes: + anicteric sclerae; pupils not irregula r Respiratory: normal respiratory effort; no respiratory distress, does not use accessory muscles and no cough Cardiovascular: well perfused Gastrointestinal (Abdomen): Inspection/Auscultation: abdomen normal to inspection; abdomen not distended Musculoskeletal: Extremities: extremities normal to inspection Skin: normal turgor; no rashes and no lesions Neurologic: moves all extremities and awake Psychiatric: Orientation: alert and oriented x 3 Principal Diagnosis Prostate cancer Discharge Exam Constitutional no acute distress Respiratory normal respiratory effort Gastrointestinal (Abdomen) Incisions appropriate Genitourinary Urine clear Discharge Data Allergies Allergy/AdvReac Type Severity Reaction Status Date / Time thimerosal Allergy Unknown EYES Verified 06/28/22 10:21 SWELLING sulfamethoxazole AdvReac Unknown Madelaine weak/ Verified 06/28/22 10:21 [From Bactrim] anxious trimethoprim [From Bactrim] AdvReac Unknown Madelaine weak/ Verified 06/28/22 10:21 anxious Procedures Performed Operation Date: 06/28/22 11:30 Actual Procedures p Robotic Laparoscopic Assisted Prostatectomy, Pelvic Lymph Node Dissection(Not Applicable) - Rodolfo Curtis MD Hospital Course (1) Prostate cancer: Plan 52-year-old male admitted status post prostatectomy. Patient tolerated procedure well. No acute issues postoperatively. He did have a documented fever in the morning of postop day #1, however his temperature was rechecked 1 hour later and he was afebrile. He was also rechecked later that afternoon and remained afebrile. He had no subjective symptoms of a fever. He tolerated diet. Minimal pain. Ambulated without issue. Labs appropriate. Good urine output. Patient was subsequently discharged home on postop day #1 with a Vargas catheter. He was in stable condition at time of discharge. Total Time Total Time Spent Total Time Spent (In Minutes): 15 Discharge Plan Discharge Items Patient Disposition: Home - Self-Care Reason For Visit: Prostate Cancer Discharge Diagnosis: Prostate cancer Activity: Per Instructions section Non-emergency contact: Surgeon and Urologist Call non-emergency contact if: your pain is not controlled and your temperature is above 101 Follow-up/Referrals: Aftab Diego MD [Primary Care Provider] - Rodolfo Curtis MD [Physician] - Diet: Regular Addtl Attending Provider Instructions: The surgery you had was: Robot-assisted radical prostatectomy with bilateral pelvic lymph node dissection. Please take all medications as prescribed and keep all follow-ups as scheduled. Please call our office at [phone] with any questions, concerns or need to reschedule appointments for any reason. We are happy to assist you. The urology office will contact you to arrange your follow-up visits. Medications: Please take all medications as prescribed. For pain control, you can take tylenol every 6 hours. You can also take ibuprofen every 6 hours. If you have been prescribed a narcotic pain medication, please take this according to the instructions on the label. You have been prescribed a single dose of antibiotics (Cipro) to be taken 1 hour prior to your appointment for vargas catheter removal. Activity: We recommend having someone with you for the first few days after surgery to help care for you. For the first 2 weeks after surgery, we would like you to get up and walk around your house. However, we recommend limit physical activity that would increase your heart rate. This will allow your body to rest and heal. Take naps if you feel tired. Don't lift anything heavier than 10 pounds, mow the law or ride a bicycle until your follow-up appointment. Please avoid long car rides. Home Care: Unless directed otherwise, drink 6 to 8 glasses of water a day (enough to keep your urine light colored). This will also help keep a healthy flow of urine. We recommend using a stool softener such as colace or miralax for the first tw o weeks to avoid constipation. Vargas Catheter or Suprapubic Catheter care: Keep the catheter well secured with either a leg back or leg strap with large bag. Empty your bag when it's about half full. You may notice some blood in the bag. This is normal after surgery and while the catheter is in place. Use mild soap (such as Dove or Dial) and water to wash the catheter and the head of your penis daily, or more frequently if needed. Return to your normal diet, we encourage good protein intake to promote healing. You may shower as normal. Please avoid tub baths or soaking until catheter removed and incisions well healed. Wearing sweat pants while you have the catheter is recommended, they will be more comfortable. Follow-up We will have you come to the office in approximately 7 days for catheter removal. - Please remember to take your dose on antibiotics 1 hour prior to this appointment. We will call you with the pathology results once they are available. We will schedule an office visit in approximately 3 months with PSA prior. Your final pathology report will be discussed at your physician follow-up appointment. Call [facility] Urology at [phone] right away if you have any of the following: Chest pain or trouble breathing (call [phone] or go to the hospital) Fever of 101F or higher, uncontrolled vomiting Heavy bleeding, clots, or bright red blood from the catheter Catheter that falls out or stops draining Foul-smelling discharge from your catheter Redness, swelling, warmth, or increased pain at your incision site Drainage, pus, or bleeding from your incision Pending Studies at Discharge: No Stand-Alone Forms: My [facility] Medications and DC Order Prescriptions: New ciprofloxacin HCl [Cipro] 500 mg tablet 500 mg PO ONCE Qty: 1 0RF Rx Instructions: Take 1 hour prior to catheter removal Continued sumatriptan succinate 100 mg tablet 100 mg PO .COMPLEX PRN (Reason: Migraine Headache) Rx Instructions: 100 mg orally 100 mg PRN; lactulose 10 gram/15 mL (15 mL) solution See Rx Instructions PO TID PRN (Reason: constipation) Qty: 750 6RF Rx Instructions: 30-45 mL PO 4 times a day PRN; metoprolol tartrate 25 mg tablet 25 mg PO BID Qty: 180 3RF lansoprazole 30 mg capsule,delayed release(DR/EC) 30 mg PO QAM Qty: 30 5RF perphenazine 16 mg tablet 24 mg PO HS Qty: 90 3RF pramipexole 0.75 mg tablet 0.75 mg PO BID Qty: 60 5RF lorazepam 2 mg tablet 2 mg PO HS Qty: 30 0RF trazodone 150 mg tablet 300 mg PO HS Qty: 60 0RF bupropion HCl [Wellbutrin SR] 200 mg tablet sustained-release 12 hr 200 mg PO BID meloxicam 15 mg tablet 15 mg PO DAILY PRN (Reason: pain) Qty: 30 5RF Rx Instructions: Take with food tadalafil 20 mg tablet See Rx Instructions PO ONCE PRN (Reason: sexual activity) Qty: 10 2RF Dose Instruction: 1/2-1 tab PO ONCE PRN; Rx Instructions: 1/2-1 tab PO ONCE PRN; albuterol sulfate 90 mcg/actuation HFA aerosol inhaler 2 puff inhalation Q4H PRN (Reason: shortness of breath or cough) Qty: 8.5 5RF fluoxetine 20 mg capsule 40 mg PO QAM melatonin 10 mg Tablet 10 mg PO HS PRN (Reason: Sleep) topiramate 25 mg tablet 25 mg PO BID Discharge Orders: Discharge Order (Routine); Ordered 06/29/22 Ordered By: Yue Lazar Admission Data Admit Date/Time: 06/28/22 19:04 Attending Provider: Rodolfo Curtis Admit Provider: Rodolfo Curtis Primary Care Provider: Aftab Diego Coding Level of Care Code D/C DAY MANAGEMENT <30 MINS Diagnoses Prostate cancer C61
== END 2022-06-29 17:10 | disposition home or self-care (01) | DRG 708 ==
LOC: ASU 10:00 → 3N 19:04